=== PATIENT | male | born 1955 | race Hispanic/Latino ===

== ENCOUNTER → 2023-07-11 | Outpatient (CLI) | payer OTHER ==
[~2023-07-11] MED LIST: ALLO100T PO; APIX2.5T PO; ATOR40TA69 PO; CARV6.25 PO; DIATR MEGLU/DIATRIZOATE SODIUM 30 ML BOTTLE ONE; INSLAN SQ; ISOS60TA77 PO; PANT40TA54 PO; TORS40TA PO
== END | disposition home or self-care (01) ==
LOC: RAH 08:35
PROVIDERS: ATTEND Surgery
DX: C20 Malignant neoplasm of rectum (principal); K57.90 Diverticulosis of intestine, part unspecified, without perforation or abscess without bleeding
CPT/HCPCS: 74270; Q9963